=== PATIENT | male | born 1960 | race African-American/Black ===

== ENCOUNTER → 2016-05-20 | Day surgery (SDC) | payer MEDICARE ==
[~2016-05-20] MED LIST: ACETAMINOPHEN PO; ADVAIR 250-501 EACH IH; ALBUTEROL MININEB NEB; ALBUTEROL0.63 MG/3 IH; ALBUTEROL0.83 MG/ML IH; ALBUTEROL17 GM INH; ALBUTEROL2.5 MG/0.5 IH; ALBUTEROL2.5 MG/0.5 INH; ALDACTONE PO; ALDACTONE25 MG PO; AMLODIPINE BESY10 MG PO; AMOXICILLIN500 M1 PO; APRESOLINE10 M1 PO; ASPIRIN; ASPIRIN81 M2 PO; ASPIRIN81 MG PO; ATRAC-TAIN142 GM TOP; AZITHROMYCIN250 MG PO; BAYER ASPIRIN325 M1 PO; BENZONATATE PO; CALAZIME P113 GM OIN TOP; CARVEDILOL12.5 MG PO; CARVEDILOL3.125 MG PO; CEFPODOXIME PR200 M1 PO; CIPRO PO; CLARITIN10 M2 PO; COMBIVENT MININEB; COMBIVENT RESPIM4 GM IH; COMBIVENT U/D3 M1 INH; COMBIVENT U/D3 M4 INH; COMBIVENT14.7 GM INH; COREG PO; COREG12.5 MG PO; COREG3.125 MG PO; COREG6.25 MG PO; DOXYCYCLINE HY100 M1 PO; DOXYCYCLINE HY100 M3 PO; DUONEB 2.5-0.5 M3 ML NEB; FLONASE; FLONASE 0.05% N16 G1; FLONASE16 GM; GLIPIZIDE PO; GLIPIZIDE10 MG PO; GLIPIZIDE5 MG/BOTT1 PO; GLUCOPHAGE500 M1 PO; GLUCOPHAGE500 MG PO; GLUCOTROL PO; GLUCOTROL XL PO; HYDRALAZINE HCL25 MG PO; HYDROCODON-ACE1 EAC7 PO; K-DUR10 MEQ PO; K-DUR20 ME1 PO; K-LOR20 MEQ PO; KCL; LASIX PO; LASIX20 MG PO; LEVAQUIN PO; LEVAQUIN750 MG PO; LISINOPRIL5 MG PO; METFORMIN; METFORMIN HCL500 M1 PO; METFORMIN PO; METOPROLOL TAR25 MG PO; MOBIC PO; MUCINEX SINUS-1 EAC1 PO; NORCO 10-325 TA1 TAB PO; NORCO 5/325 TAB1 TAB PO; NORVASC PO; NORVASC10 MG PO; NYSTATIN30 GM TOP; OXYGEN; PEPCID AC20 M2 PO; POTASSIUM CHLO10 ME2 PO; PRAVACHOL PO; PRAVACHOL20 MG PO; PRAVASTATIN SOD20 MG PO; PREDNISONE PO; PREDNISONE1 MG PO; PREDNISONE10 MG PO; PREDNISONE10 MG/DOSE PO; PREDNISONE5 MG PO; PRINIVIL5 MG PO; PROAIR HFA8.5 GM INH; PROTONIX PO; PULMICORT0.25 MG/2 INH; PULMICORT0.5 MG/2 M IH; QVAR7.3 G1 IH; QVAR7.3 GM INH; RANITIDINE HCL150 M1 PO; RANITIDINE PO; ROBITUSSIN100 MG/51; ROBITUSSIN100 MG/51 PO; SENNA PO; SIMVASTATIN20 MG PO; SINGULAIR PO; SPIRONOLACTONE50 MG PO; STERAPRED5 MG/DOSE1 PO; SYMBICORT; SYMBICORT INH; SYMBICORT80 INH; TAMIFLU75 M1 PO; TYLENOL325 MG/10. PO; ZANTAC PO; ZANTAC150 MG PO; ZESTRIL5 MG PO; ZITHROMAX PO; ZITHROMAX1 G/PKT PO; ZITHROMAX500 M1 PO; ZITHROMAX500 MG PO; ZOCOR PO; ZOCOR10 MG PO; ZOCOR20 MG PO; ZOSYN IV; ZYVOX PO; [UNRECOGNIZED DRUG - OTHER]; [UNRECOGNIZED DRUG - OTHER] TOP; [UNRECOGNIZED DRUG - SUPPLY] MC
== END | disposition home or self-care (01) ==
LOC: COPS 09:11
DX: Z12.11 Encounter for screening for malignant neoplasm of colon (principal); D12.2 Benign neoplasm of ascending colon; D12.4 Benign neoplasm of descending colon; D12.5 Benign neoplasm of sigmoid colon; D12.8 Benign neoplasm of rectum; K63.5 Polyp of colon; K57.30 Diverticulosis of large intestine without perforation or abscess without bleeding; K64.8 Other hemorrhoids; I11.0 Hypertensive heart disease with heart failure; I50.9 Heart failure, unspecified; E11.9 Type 2 diabetes mellitus without complications; J45.909 Unspecified asthma, uncomplicated; J44.9 Chronic obstructive pulmonary disease, unspecified; Z87.01 Personal history of pneumonia (recurrent); Z88.2 Allergy status to sulfonamides; Z88.8 Allergy status to other drugs, medicaments and biological substances; Z91.040 Latex allergy status; Z79.82 Long term (current) use of aspirin; Z79.899 Other long term (current) drug therapy; Z93.0 Tracheostomy status; Z98.41 Cataract extraction status, right eye; Z98.42 Cataract extraction status, left eye; Z99.81 Dependence on supplemental oxygen
CPT/HCPCS: 82947; 88305; J2250

== ENCOUNTER 2016-05-22 10:43 | Inpatient (IN) | payer MEDICARE ==
--- NOTE | ~2016-05-22 | OR ---
Unit #: [id number] #: [id number] Patient: SANDRITA ALLEN [id number] [address] [place], [place] [address] [id number] I MR#: [id number] NAME: SANDRITA ALLEN. ROOM: 238 Date of Procedure: 05/20/2016 Admission Date: 05/22/2016 Surgeon: Serafin Swartz M.D. : 1960 Attending Physician: Serafin Swartz M.D. Primary Care Physician: Tatyana Guillen M.D. OPERATIVE REPORT PREOPERATIVE DIAGNOSES Colorectal cancer screening. PROCEDURES PERFORMED Colonoscopy and polypectomy. POSTOPERATIVE DIAGNOSES 1. The patient had a total of 5 polyps, one each in the rectum, sigmoid colon, ascending and descending colon, and cecum. The polyps ranged in size from 5 mm to 1.5 cm. The largest polyp being in the distal transverse colon. All the polyps were removed using snare cautery polypectomy. They were retrieved and sent for histology. 2. The patient also had mild sigmoid and descending colon diverticulosis. 3. Small internal hemorrhoids. 4. Rest of the examination up to cecum was normal. The quality of the prep was excellent. RECOMMENDATIONS Follow up results of polyp histology. Consider repeat examination in 3 to 5 years. SEDATION USED MAC. DESCRIPTION OF PROCEDURE Following detailed explanation of the potential risks and complications of a colonoscopy, namely perforation, bleeding, and complications related to sedation, the patient was brought to GI lab and laid in the left lateral decubitus position. A digital rectal examination was performed, which was normal. Lubricated tip of the Olympus video colonoscope was inserted through the anus and advanced under direct vision. The scope was advanced and passed up to sigmoid into descending colon. Multiple small diverticula were seen in this area. The scope tip was then navigated all the way up to cecum with visualization of the ileocecal valve and the appendiceal orifice. Preparation was good with good visualization and photodocumentation was obtained. Last several inches of terminal ileum also visualized after intubation of the ileocecal valve and appeared normal. Successive segments of the colonic mucosa were examined upon withdrawal. Multiple polyps were seen along the way. There were 5 polyps in total, one each in the cecum, ascending and descending colon, transverse colon, sigmoid colon, and rectum. The largest polyp was in the transverse colon. It was about 1.5 cm in size. The remaining polyps Unit #: [id number] #: [id number] Patient: SANDRITA ALLEN being 5 to 8 mm each. All the polyps were removed using snare cautery polypectomy. They were retrieved and sent for histology. No additional polyps noted. Other than the left-sided diverticulosis, the patient also noted to have small internal hemorrhoids at anal verge. He tolerated the procedure without any postprocedure complications. Dictated by... Kanika Alarcon/rebecca TD: 05/24/2016 01:27 JOB #: [id number] OPERATIVE REPORT X Serafin Swartz MD X PROCEDURE OPERATIVE NOTE
--- NOTE | ~2016-05-22 | HP ---
Unit #: [id number] #: [id number] Patient: SANDRITA ALLEN [id number] [address] [place], [place] [address] [id number] I MR#: [id number] NAME: SANDRITA ALLEN. ROOM: 238 Age: 56 Sex: M Admission Date: 05/22/2016 : 1960 Attending Physician: Serafin Swartz M.D. Primary Care Physician: Tatyana Guillen M.D. HISTORY AND PHYSICAL REASON FOR ADMISSION 1. Lower GI bleed. 2. Anemia of acute GI blood loss. HISTORY The patient is a very pleasant, 56-year-old -[place] gentleman. Patient underwent a screening colonoscopy on May 20 and his fiancee called me earlier today saying the patient was having bleeding two days later. I suspect that this has to be post-polypectomy bleed and patent thus came to the emergency room. His hemoglobin was found to be 9, baseline hemoglobin being 11. He is therefore being admitted for observation. PAST MEDICAL HISTORY His past medical history is significant for history of hypertension, congestive heart failure, hypothyroidism, diabetes. He also has a history of GERD, COPD, degenerative joint disease and he is on p.r.n. oxygen. PAST SURGICAL HISTORY Previous surgeries include a tracheostomy which was subsequently closed, as well as cataract surgery and tooth abscess surgery. HOME MEDICATIONS Medications at home include Glucophage, amlodipine besylate, hydralazine, aspirin, carvedilol, ranitidine, Mucinex, oxygen and prednisone. ALLERGIES Sulfonamides, lisinopril. SOCIAL HISTORY He does not smoke but does drink alcohol. FAMILY HISTORY There is no family history of colon or pancreatic cancer or disease. REVIEW OF SYSTEMS A detailed review of organ systems does not reveal any recent weight loss. No history of fever, chills, rigors, headaches, seizures, chest pain, syncope. No history of cough, expectoration or hemoptysis. No history of dysuria, hematuria or pyuria. No history of focal seizures or extremity weakness. The rest of the review of organ systems is unremarkable. PHYSICAL EXAMINATION Unit #: [id number] #: [id number] Patient: SANDRITA ALLEN GENERAL: On examination he is alert and oriented, appears comfortable. VITAL SIGNS: His vital signs are stable with a temperature of 98.3, pulse is 86 per minute and regular, respiratory rate is 16, blood pressure is 120/79. He weighs 240 pounds which is close to his baseline weight. HEENT: He has mild pallor. There being no icterus or lymphadenopathy. EXTREMITIES: No peripheral edema. CARDIOVASCULAR EXAMINATION: Normal heart sounds. No murmurs on auscultation. LUNGS: Revealed normal breath sounds, good air entry. ABDOMEN: Soft. No tenderness. Liver and spleen are not palpable. Bowel sounds normal. DIAGNOSTIC STUDIES LABORATORY: Evaluation shows an INR of 1.0. Serum chemistry shows normal BUN and creatinine and electrolytes, glucose is 176. Hemoglobin on admission was 10.3 and four hours later it was 9.0, baseline hemoglobin is 12.4. CLINICAL IMPRESSION Patient most likely has delayed post-polypectomy bleed. Will admit and observe and patient may need packed cell transfusions with or without relook at a colonoscopy at the area of the polypectomy sites. The above plan was discussed with the patient and his fiancee. They were reassured. Dictated by Kanika Alarcon TD: 05/23/2016 21:29 JOB #: [id number] HISTORY AND PHYSICAL X Serafin Swartz MD X HISTORY AND PHYSICAL
--- NOTE | ~2016-05-22 | OR ---
Unit #: [id number] #: [id number] Patient: SANDRITA ALLEN [id number] [address] [place], [place] [address] [id number] I MR#: [id number] NAME: SANDRITA ALLEN. ROOM: 238 Date of Procedure: 05/23/2016 Admission Date: 05/22/2016 Surgeon: Serafin Swartz M.D. : 1960 Attending Physician: Serafin Swartz M.D. Primary Care Physician: Tatyana Guillen M.D. OPERATIVE REPORT PRIMARY CARE PHYSICIAN Tatyana Guillen M.D. PREOPERATIVE DIAGNOSES The patient presented with seems like postpolypectomy bleed with a drop in hemoglobin, requiring 1 unit of packed cell transfusion. The purpose of colonoscopy is to identify the site of bleed and see if the patient needs any endotherapy. PROCEDURES PERFORMED Colonoscopy and polypectomy. POSTOPERATIVE DIAGNOSES 1. Single sessile polyp in the mid descending colon. This was about 6 mm in size and was removed using snare polypectomy. 2. Rest of the examination all the way up to cecum was normal. There was no active bleeding noticed throughout the entire colon. The site of previous polypectomies especially in the transverse colon via the largest polyp was removed was all normal and no blood or blood residue was seen. The patient most likely has resolved postpolypectomy bleed. RECOMMENDATIONS The patient will be able to go home later today. We will follow up in the office in next 8 to 10 weeks' time along with the results of polyp histology. SEDATION USED MAC. DESCRIPTION OF PROCEDURE Following detailed explanation of the potential risks and complications of a colonoscopy, namely perforation, bleeding, and complications related to sedation, the patient was brought to GI lab and laid in the left lateral decubitus position. A digital rectal examination was performed, which was normal. Lubricated tip of the Olympus video colonoscope was inserted through the anus and advanced under direct vision. The scope was advanced and passed up to sigmoid into descending colon. Multiple small diverticula were seen in this area. The scope tip was then navigated all the way up to cecum with visualization of the ileocecal valve and the appendiceal orifice. Preparation was good with good visualization and photodocumentation was obtained. Successive segments of the colonic mucosa were examined upon withdrawal. Sites of previous polypectomies in Unit #: [id number] #: [id number] Patient: SANDRITA ALLEN the ascending colon and transverse colon visualized appeared normal. There being no active bleeding noticed. No blood or blood residue was seen in the colonic lumen. In addition, a single sessile polyp was seen in the mid descending colon. This was about 6 mm in size. It was removed using snare polypectomy. It was retrieved and sent for histology. The scope was then withdrawn. The patient returned to recovery area. He tolerated the procedure without any postprocedure complications. Dictated by... Kanika Alarcon/rebecca TD: 05/24/2016 02:18 JOB #: [id number] CC: Tatyana Guillen M.D. OPERATIVE REPORT X Serafin Swartz MD X PROCEDURE OPERATIVE NOTE
--- NOTE | ~2016-05-22 | DS ---
Unit #: [id number] #: [id number] Patient: SANDRITA ALLEN [id number] [address] [address] [id number] I MR#: [id number] NAME: SANDRITA ALLEN. ROOM: 238 Age: 56 Sex: M Admission Date: 05/22/2016 : 1960 Discharge Date: 05/23/2016 Attending Physician: Serafin Swartz M.D. Primary Care Physician: Tatyana Guillen M.D. DISCHARGE SUMMARY PROCEDURES DONE DURING HOSPITALIZATION 1. Colonoscopy and polypectomy done on 05/23/16. 2. Patient was given 1 unit of packed cell transfusion during this hospitalization. FINAL DIAGNOSIS Postpolypectomy bleed, resolved spontaneously. DISCHARGE MEDICATIONS 1. Albuterol sulfate 2.5 mg inhalation q.6 hours as needed for shortness of breath. 2. Albuterol sulfate HFA aerosol 1 to 2 puffs inhalation q.6 hours as needed. 3. Budesonide/formoterol fumarate inhaler (Symbicort) 160/4.5 mcg 2 puffs inhalation b.i.d. 4. Metformin 500 mg p.o. b.i.d. 5. Claritin 10 mg p.o. h.s. 6. Carvedilol 12.5 mg p.o. b.i.d. 7. Amlodipine 10 mg p.o. q.a.m. 8. Pravachol 20 mg p.o. h.s. 9. Hydralazine 25 mg p.o. b.i.d. 10. Ranitidine 150 mg p.o. b.i.d. 11. Aspirin 325 mg p.o. daily. FOLLOWUP INSTRUCTIONS The patient will be followed up in the office in 3 months. He needs to call our office in the next week and make a followup appointment. Dictated by... Kanika Alarcon/luz TD: 05/25/2016 09:49 JOB #: [id number] Unit #: [id number] #: [id number] Patient: SANDRITA ALLEN DISCHARGE SUMMARY X Serafin Swartz MD DISCHARGE SUMMARY
[~2016-05-22 10:43] MED LIST changes: -ALBUTEROL2.5 MG/0.5 INH; -BAYER ASPIRIN325 M1 PO; -CLARITIN10 M2 PO
[2016-05-22 11:51] LABS: BASOPHIL% 0.3 % (0-2.5); EOSINOPHIL# 0.2 X10e3 (0-0.7); EOSINOPHIL% 1.4 % (0.0-7.0); HEMATOCRIT 32.1 % (38.0-50.0); HEMOGLOBIN 10.3 gm/dL (13.0-16.0); LYMPHOCYTE# 2.6 X10e3 (1.0-3.5); LYMPHOCYTE% 19.7 % (17.0-45.0); MEAN CELL VOLUME 77.4 FL (83-96); MEAN CORPUSCULAR HEMOGLOBIN 24.7 PG (28-34); MEAN CORPUSCULAR HGB CONC 31.9 g/dL (30-36); MEAN PLATELET VOLUME 8.9 FL (6.5-11.5); MONOCYTE% 7.7 % (3.0-12.0); NEUTROPHIL# 9.3 X10e3 (1.5-7.1); NEUTROPHIL% 70.9 % (40-75); PLATELET COUNT 258 X10e3 (140-420); RED BLOOD COUNT 4.15 X10e (3.90-5.60); WHITE BLOOD COUNT 13.2 X10e3 (4.0-10.5)
[2016-05-22 11:52] LABS: DIFF IND NO
[2016-05-22 12:04] LABS: PARTIAL THROMBOPLASTIN TIME 22.5 SECONDS (23.5-31.3); PROTHROMBIN TIME (PATIENT) 10.3 SECONDS (9.6-11.5)
[2016-05-22 12:15] LABS: ALBUMIN SERUM 3.4 g/dL (3.5-5.0); ALKALINE PHOSPHATASE 55 U/L (32-92); ALT (SGPT) 32 U/L (10-40); AST (SGOT) 19 U/L (10-42); BILIRUBIN, DIRECT 0.1 mg/dL (0.0-0.2); BILIRUBIN,INDIRECT 0.4 mg/dL (0.0-0.9); BILIRUBIN,TOTAL 0.5 mg/dL (0.2-2.0); BLOOD UREA NITROGEN 17 mg/dL (9-23); BUN/CREATININE RATIO 24.28; CALCIUM SERUM 8.7 mg/dL (8.4-10.2); CARBON DIOXIDE 30 mmol/L (22-31); CHLORIDE 94 mmol/L (100-111); CREATININE SERUM 0.7 mg/dL (0.6-1.4); GLOM FILT RATE Estimated ABOVE60 mL/min (>60); GLUCOSE FASTING 176 mg/dL (70-110); POTASSIUM 3.4 mmol/L (3.5-5.1); PROTEIN TOTAL SERUM 5.9 g/dL (6.0-8.3); SODIUM 134 mmol/L (135-145)
[2016-05-22] MEDS ORDERED: ALBUTEROL2.5 MG/0.5 INH (14:41)
[2016-05-22] MEDS ORDERED: BAYER ASPIRIN325 M1 PO (14:43)
[2016-05-22] MEDS ORDERED: CLARITIN10 M2 PO (14:44)
[2016-05-22] MEDS ORDERED: PRAVACHOL20 MG PO (14:46)
[2016-05-22] MEDS ORDERED: PROAIR HFA8.5 GM INH (14:47)
[2016-05-22] MEDS ORDERED: ALBUTEROL17 GM INH (14:48)
[2016-05-22] MEDS ORDERED: SYMBICORT INH (14:49)
[2016-05-22 16:13] LABS: BASOPHIL# 0.1 X10e3 (0-0.3); BASOPHIL% 0.5 % (0-2.5); EOSINOPHIL# 0.2 X10e3 (0-0.7); EOSINOPHIL% 1.5 % (0.0-7.0); HEMATOCRIT 28.4 % (38.0-50.0); LYMPHOCYTE# 2.6 X10e3 (1.0-3.5); LYMPHOCYTE% 20.7 % (17.0-45.0); MEAN CELL VOLUME 77.1 FL (83-96); MEAN CORPUSCULAR HEMOGLOBIN 24.5 PG (28-34); MEAN CORPUSCULAR HGB CONC 31.8 g/dL (30-36); MEAN PLATELET VOLUME 8.3 FL (6.5-11.5); MONOCYTE# 1.1 X10e3 (0-1.0); MONOCYTE% 8.6 % (3.0-12.0); NEUTROPHIL# 8.7 X10e3 (1.5-7.1); NEUTROPHIL% 68.7 % (40-75); PLATELET COUNT 268 X10e3 (140-420); RED BLOOD COUNT 3.68 X10e (3.90-5.60); RED CELL DISTRIBUTION WIDTH 17.8 % (11.0-15.5); WHITE BLOOD COUNT 12.7 X10e3 (4.0-10.5)
[2016-05-22 16:15] LABS: DIFF IND NO
[2016-05-23 05:49] LABS: HEMATOCRIT 25.3 % (38.0-50.0); HEMOGLOBIN 8.1 gm/dL (13.0-16.0); MEAN CELL VOLUME 77.8 FL (83-96); MEAN CORPUSCULAR HEMOGLOBIN 25.1 PG (28-34); MEAN CORPUSCULAR HGB CONC 32.2 g/dL (30-36); MEAN PLATELET VOLUME 8.8 FL (6.5-11.5); RED BLOOD COUNT 3.25 X10e (3.90-5.60); RED CELL DISTRIBUTION WIDTH 17.6 % (11.0-15.5); WHITE BLOOD COUNT 13.7 X10e3 (4.0-10.5)
[2016-05-23 06:23] LABS: BLOOD UREA NITROGEN 16 mg/dL (9-23); CALCIUM SERUM 8.4 mg/dL (8.4-10.2); CARBON DIOXIDE 31 mmol/L (22-31); CHLORIDE 97 mmol/L (100-111); CREATININE SERUM 0.8 mg/dL (0.6-1.4); GLOM FILT RATE Estimated ABOVE60 mL/min (>60); GLUCOSE FASTING 168 mg/dL (70-110); POTASSIUM 3.7 mmol/L (3.5-5.1); SODIUM 136 mmol/L (135-145)
== END 2016-05-23 22:49 | disposition home or self-care (01) | DRG 378 ==
LOC: CED 10:43 → CEDOF 12:30 → C2A 17:59
PROVIDERS: Emergency Medicine; Internal Medicine Gastroenterology
PROC: 30233N1 Transfusion of Nonautologous Red Blood Cells into Peripheral Vein, Percutaneous Approach (ICD-10-PCS; principal; 2016-05-23 20:42)
PROC: 0DBM8ZZ Excision of Descending Colon, Via Natural or Artificial Opening Endoscopic (ICD-10-PCS; 2016-05-23 20:42)
DX: K92.2 Gastrointestinal hemorrhage, unspecified (principal); D62 Acute posthemorrhagic anemia; D12.4 Benign neoplasm of descending colon; Z79.82 Long term (current) use of aspirin; Z88.2 Allergy status to sulfonamides
CPT/HCPCS: 36415; 80048; 80076; 82947; 85025; 85027; 85610; 85730; 86850; 86900; 86901; 86923; 88305; 94640; 94664; 94760; 99285; J1815; J2250; J3010; P9016

== ENCOUNTER 2016-06-22 05:41 | Emergency (ER) | payer MEDICARE ==
--- NOTE | ~2016-06-22 | CR72 ---
[facility] A Service of [facility] & [facility] RADIOLOGY TEXT RESULTS PATIENT: SANDRITA ALLEN LOCATION: [facility] : [birth year] UNIT #: [id number] AGE: [address]: Yinka Coleman MD SEX: M ORDER DR: [id number] [facility] [address] [place], [place] [address] [id number] MR#: [id number] Acc #: [id number] NAME: SANDRITA ALLEN : 1960 SEX: M STUDY DATE/TIME: 06/22/2016 5:49 UNIT: [facility] ROOM: STUDY DESCRIPTION: CR Chest Single View Portable Attending Physician: Yinka Coleman M.D. Ordering Physician: Jessica Sotelo A.P.R.N. Primary Care Physician: Tatyana Guillen M.D. MEDICAL IMAGING REPORT This report is preliminary unless electronic signature is present EXAM Portable chest HISTORY Congestion x2 days COMPARISON 04/27/2016 FINDINGS Portable view of the chest demonstrates parenchymal opacity in the right lung base, right infrahilar region measuring close to 5.0 cm. This represents a new finding from the chest radiograph of 04/27/2016 and most likely represents acute airspace disease and pneumonia. Recommend clinical and radiographic followup to resolution. No effusions. Heart size within normal limits. Mediastinum and bony thorax unremarkable. Dictated by... Danny Brewster M.D. THIS IS AN ELECTRONICALLY VERIFIED REPORT Danny Brewster M.D. at 06/22/2016 12:26 PM Linette TD: 06/22/2016 08:42 JOB #: [id number] MEDICAL IMAGING REPORT Page 1 of 1 COPY
--- NOTE | ~2016-06-22 | EKG ---
PATIENT: SANDRITA ALLEN UNIT #: [id number] Ventricular Rate: 83 BPM Atrial Rate: 83 BPM P-R Interval: 160 ms QRS Duration: 84 ms Q-T Interval: 384 ms QTC Calculation(Bezet): 451 ms P [place]: 61 degrees Calculated R [place]: 43 degrees Calculated T [place]: 40 degrees Diagnosis Line: Normal sinus rhythm Diagnosis Line: Normal ECG Diagnosis Line: When compared with ECG of 27-APR-2016 16:41, Diagnosis Line: No significant change was found Diagnosis Line: Confirmed by PRAKASH IRIZARRY MD ([id number]) on 06/22/2016 Diagnosis Line: 9:21:16 PM INTERPRETING MD: JUAN C ARMSTRONG
[2016-06-22 05:30] LABS: INFLUENZA A NEG (NEG); INFLUENZA B NEG (NEG)
[~2016-06-22 05:41] MED LIST changes: +ALBUTEROL2.5 MG/0.5 INH; +BAYER ASPIRIN325 M1 PO; +CLARITIN10 M2 PO
[2016-06-22 06:34] LABS: POC - CKMB <1.0 ng/mL (0.0-7.9); POC - TROPONIN <0.05 ng/mL (<=0.05)
[2016-06-22 06:36] LABS: BASOPHIL# 0.1 X10e3 (0-0.3); BASOPHIL% 0.5 % (0-2.5); EOSINOPHIL# 0.1 X10e3 (0-0.7); EOSINOPHIL% 1.1 % (0.0-7.0); HEMATOCRIT 28.6 % (38.0-50.0); HEMOGLOBIN 8.6 gm/dL (13.0-16.0); LYMPHOCYTE# 1.3 X10e3 (1.0-3.5); LYMPHOCYTE% 9.9 % (17.0-45.0); MEAN CELL VOLUME 73.6 FL (83-96); MEAN CORPUSCULAR HEMOGLOBIN 22.2 PG (28-34); MEAN CORPUSCULAR HGB CONC 30.2 g/dL (30-36); MEAN PLATELET VOLUME 7.5 FL (6.5-11.5); MONOCYTE# 1.8 X10e3 (0-1.0); NEUTROPHIL# 9.6 X10e3 (1.5-7.1); NEUTROPHIL% 74.5 % (40-75); PLATELET COUNT 319 X10e3 (140-420); RED BLOOD COUNT 3.88 X10e (3.90-5.60); RED CELL DISTRIBUTION WIDTH 19.9 % (11.0-15.5); WHITE BLOOD COUNT 12.9 X10e3 (4.0-10.5)
[2016-06-22 06:37] LABS: DIFF IND NO
[2016-06-22 06:49] LABS: PARTIAL THROMBOPLASTIN TIME 28.9 SECONDS (23.5-31.3); PROTHROMBIN TIME (PATIENT) 10.8 SECONDS (9.6-11.5)
[2016-06-22 07:03] LABS: ALBUMIN SERUM 3.2 g/dL (3.5-5.0); BILIRUBIN,TOTAL 0.4 mg/dL (0.2-2.0); CALCIUM SERUM 8.6 mg/dL (8.4-10.2); CREATININE SERUM 0.9 mg/dL (0.6-1.4); GLOM FILT RATE Estimated 111.8 mL/min (>60); POTASSIUM 3.4 mmol/L (3.5-5.1); PROTEIN TOTAL SERUM 6.7 g/dL (6.0-8.3)
== END 2016-06-22 07:51 | disposition home or self-care (01) ==
LOC: CED 05:41
PROVIDERS: Nurse Practitioner
DX: J18.1 Lobar pneumonia, unspecified organism (principal); J02.9 Acute pharyngitis, unspecified; E11.9 Type 2 diabetes mellitus without complications; I50.9 Heart failure, unspecified; J44.9 Chronic obstructive pulmonary disease, unspecified; K21.9 Gastro-esophageal reflux disease without esophagitis; Z79.899 Other long term (current) drug therapy; Z88.8 Allergy status to other drugs, medicaments and biological substances; Z91.040 Latex allergy status
CPT/HCPCS: 36415; 71010; 80053; 82150; 82553; 83690; 83880; 84484; 85025; 85610; 85730; 87040; 87804; 87880; 93005; 94640; 96372; 99283; J0561